=== PATIENT | male | born 1950 | race Caucasian/White ===

== ENCOUNTER 2021-01-18 15:36 | Emergency (ER) | payer MEDICARE, SELFPAY ==
[2021-01-18 17:28] VITALS: BP 139/77; PULSE 73; RESP 14; TEMP 37.1; O2SAT 98; BMI 35.4
[2021-01-18 19:02] LABS: Basophils % 0.4 %; Eosinophils # 0.1 10^3/uL (0.0-0.8); Eosinophils % 0.7 %; Hematocrit 48.1 % (42.0-52.0); Hemoglobin 15.4 g/dL (11.7-16.6); Lymphocytes # 1.6 10^3/uL (0.8-4.8); Lymphocytes % 17.5 %; Mean Corpuscular Hemoglobin 24.8 pg (28.0-34.0); Mean Corpuscular Volume 77.6 fL (80-94); Mean Platelet Volume 9.6 fL (7.4-10.4); Monocytes # 0.9 10^3/uL (0.2-0.9); Monocytes % 9.9 %; Neutrophils # 6.67 10^3/uL (1.8-7.7); Neutrophils % 71.1 %; Nucleated Red Blood Cells % 0 %; Platelet Count 236 10^3/cmm (130-400); Red Cell Distribution Width 15.6 % (12.1-15.1); White Blood Count 9.4 10^3/uL (4.0-10.0)
[2021-01-18 19:27] LABS: Alanine Aminotransferase 20 U/L (0-41); Albumin Level 3.9 g/dL (3.5-5.2); Alkaline Phosphatase 104 IU/L (40-130); Anion Gap 16.8 (5-19); Aspartate Amino Transferase 21 U/L (0-40); Blood Urea Nitrogen 19 mg/dL (8-23); Calcium 9.9 mg/dL (8.5-10.5); Carbon Dioxide 25 mmol/L (22-29); Chloride 99 mmol/L (98-107); Globulin 3.6 g/dL (1.3-4.6); Glomerular Filtration Rate 95.6 mL/min (90-130); Glucose 134 mg/dL (65-115); Lipase 53 U/L (13-60); Osmolality Calculated 288 mOsm/kg (285-295); Potassium 3.8 mmol/L (3.5-5.1); Sodium 137 mmol/L (136-145); Total Bilirubin 0.8 mg/dL (0.15-1.2); Total Protein 7.5 g/dL (6.6-8.7)
[2021-01-18 20:12] LABS: C Reactive Protein 19.3 mg/L (0.0-4.9)
[2021-01-18 21:49] VITALS: BP 165/84; PULSE 73; RESP 16; O2SAT 97
--- NOTE | 2021-01-18 22:03 | ED_ITS ---
HPI - Abdominal Pain General: Chief Complaint: Abdominal Pain Stated Complaint: ABD PAIN, N/V Time Seen by Provider: 01/18/21 22:03 History of Present Illness: HPI narrative: 7-year-old male patient comes in today with abdominal pain. Patient reported 2 days ago he had some significant nausea and vomiting. For the last 12 to 24 hours he has had an increasing pain to his abdomen. Patient reports most of the pain is on the left side. Patient reports some constipation. Patient appears in moderate pain, slightly unwell but not toxic. Patient reports a history of diverticulosis, hypertension, and skin melanoma. Associated Symptoms: Reports constipation, nausea and vomiting Review of Systems General: Reports: 10 or more systems reviewed and unremarkable except in HPI and below GI: Reports: abdominal pain, nausea, vomiting and constipation PFSH ED PFSH: Medical History Abnormal glucose Atrial fibrillation History of nonmelanoma skin cancer HTN (hypertension) Prostate cancer Surgical History H/O knee surgery Family History Other Cancer Diabetes Social History Smoking and tobacco status: never smoked Alcohol intake: current Alcohol intake frequency: holidays/special occasions only Alcohol type: beer Physical Exam Const: COMMON NORMALS: no acute distress and patient oriented x3 GENERAL APPEARANCE: cooperative HENMT: COMMON NORMALS: normocephalic and Normal external nose present HEAD & SCALP: normal to inspection and normocephalic NOSE: Normal external nose present MOUTH: Normal oral and palatal mucosa present THROAT: posterior oropharynx normal Eye: GENERAL EYE: appearance normal, both eyes and all related structures Neck/C-Spine: COMMON NORMALS: full ROM Chest: COMMONS NORMALS: normal inspection of the chest Resp: COMMON NORMALS: normal respiratory effort EFFORT & INSPECTION: Yes able to speak in complete sentences Cardio: COMMON NORMALS: regular rate and regular rhythm RATE: regular rate RHYTHM: regular rhythm GI: AUSCULTATION: Yes normoactive bowel sounds PALPATION: Yes Firmness to palpation present (GI) (Mildly distended) and Yes Tenderness to palpation present (GI) (Generalized) Back/Pelvis: COMMON NORMALS: thoracic and lumbar spine normal to inspection Extremity: COMMON NORMALS: normal to inspection Neuro: COMMON NORMALS: patient oriented x3 and moves all extremities Psych: COMMON NORMALS: mental status grossly normal and cooperative Skin: COMMON NORMALS: no rashes or lesions noted GENERAL SKIN EXAM: no rashes or lesions noted Course Vital Signs: Vital signs: Vital Signs Temperature 98.8 F 01/18/21 17:28 Pulse Rate 73 01/18/21 21:49 Respiratory Rate 16 01/18/21 21:49 Blood Pressure 165/84 01/18/21 21:49 Pulse Oximetry 97 01/18/21 21:49 MDM - Abdominal Pain MDM Narrative: Medical decision making narrative: 74-year-old male comes in with generalized abdominal pain. On exam patient has some mild distention abdomen, decreased bowel sounds, vital signs are normal. Differential diagnosis includes not limited to diverticulitis, gastroenteritis, bowel obstruction, gallbladder disease. Laboratory values were unremarkable. CT scan of the abdomen noticed an ileus with possible developing bowel obstruction. I reviewed the patient with Dr. Egan. He agreed with plan for patient to try outpatient treatment with laxative and a clear liquid diet. I instructed patient to use milk of magnesia 30 ml twice daily until relief of stool. Instructed clear liquid diet until bowel movements are produced. Prescription for Zofran was used to help with nausea. I instructed patient to monitor for fever, uncontrolled pain, blood in vomit or stool. Patient and spouse both reported understanding and agreed to plan. Lab Data: Labs: Lab Results 01/18/21 01/18/21 01/18/21 Range/Units 18:55 18:55 18:55 WBC 9.4 (4.0-10.0) 10^3/ uL RBC 6.20 H (4.1-5.3) 10^6/u L Hgb 15.4 (11.7-16.6) g/dL Hct 48.1 (42.0-52.0) % MCV 77.6 L (80-94) fL MCH 24.8 L (28.0-34.0) pg MCHC 32.0 (30.0-36.0) g/dL RDW 15.6 H (12.1-15.1) % Plt Count 236 (130-400) 10^3/c mm MPV 9.6 (7.4-10.4) fL Neut % (Auto) 71.1 % Lymph % (Auto) 17.5 % [place] % (Auto) 9.9 % Eos % (Auto) 0.7 % Baso % (Auto) 0.4 % Neut # (Auto) 6.67 (1.8-7.7) 10^3/u L Lymph # (Auto) 1.6 (0.8-4.8) 10^3/u L [place] # (Auto) 0.9 (0.2-0.9) 10^3/u L Eos # (Auto) 0.1 (0.0-0.8) 10^3/u L Baso # (Auto) 0.0 (0.0-0.1) 10^3/u L Nucleated RBC % (a uto) 0 % Nucleated RBCs # 0.0 /100WBC Sodium 137 (136-145) mmol/L Potassium 3.8 (3.5-5.1) mmol/L Chloride 99 (98-107) mmol/L Carbon Dioxide 25 (22-29) mmol/L Anion Gap 16.8 (5-19) BUN 19 (8-23) mg/dL Creatinine 0.8 (0.7-1.2) mg/dL GFR Calculation 95.6 (90-130) mL/min Glucose 134 H (65-115) mg/dL Calculated Osmolal ity 288 (285-295) mOsm/k g Calcium 9.9 (8.5-10.5) mg/dL Total Bilirubin 0.8 (0.15-1.2) mg/dL AST 21 (0-40) U/L ALT 20 (0-41) U/L Alkaline Phosphata se 104 (40-130) IU/L C-Reactive Protein 19.3 H (0.0-4.9) mg/L Total Protein 7.5 (6.6-8.7) g/dL Albumin 3.9 (3.5-5.2) g/dL Globulin 3.6 (1.3-4.6) g/dL Lipase 53 (13-60) U/L Discharge Plan Discharge Patient Disposition: Home Clinical Impression: Ileus Abdominal pain Qualifiers: Abdominal location: generalized Qualified Code(s): R10.84 - Generalized abdominal pain Condition: Stable Prescriptions: New ondansetron HCl 4 mg tablet 4 mg PO Q8H PRN (Reason: nausea and vomiting) Qty: 10 RF: 0 Milk of Magnesia 400 mg/5 mL suspension 30 ml PO BID PRN (Reason: constipation) Qty: 240 RF: 0 No Action sotalol 80 mg tablet 80 mg PO DAILY RF: 0 nifedipine 90 mg tablet extended release 90 mg PO DAILY RF: 0 hydrocodone-acetaminophen 10-325 mg tablet 1 tab PO Q8H PRNRF: 0 Discharge Orders: Discharge ED (Routine); Ordered 01/18/21 Ordered By: John Dahl Referrals: Dianna Michael PA [Primary Care Provider] - Discharge Diet: Clear Liquid Discharge Activity: Increase activity as tolerated Patient Instructions: Ileus (ED), Opioid Safety Activity Restrictions/Additional Instructions: Home and rest. Drink plenty of fluids. Use medication as directed. Use milk of magnesia 30 mL twice a day until a good bowel movement. Use Zofran as needed for nausea. Monitor for fever, persistent vomiting, blood in vomit or stool or uncontrolled pain. Return to the emergency department for any of these worsening symptoms or new concerns. Follow-up with primary care as needed. Stand Alone Forms: Work/School Release Coding Level of Care Code ED Life Skills Specialist for Danny Fwd Exam Comprehensive
--- NOTE | 2021-01-18 22:10 | CTR_ITS ---
PROCEDURE INFORMATION: Exam: CT Abdomen And Pelvis With Contrast Exam date and time: 01/18/2021 10:10 PM Age: 70 years old Clinical indication: Constipation and nausea and vomiting; Abdominal pain; Generalized; Prior surgery; Surgery type: Appy; Patient HX: Abd pain with n/v/constipation. History of prostate cancer. ; Additional info: Abd pain, n/v, constipation TECHNIQUE: Imaging protocol: Computed tomography of the abdomen and pelvis with contrast. Radiation optimization: All CT scans at this facility use at least one of these dose optimization techniques: automated exposure control; mA and/or kV adjustment per patient size (includes targeted exams where dose is matched to clinical indication); or iterative reconstruction. Contrast material: OMNI 300; Contrast volume: 95 ml; Contrast route: INTRAVENOUS (IV); COMPARISON: No relevant prior studies available. RADIATION DOSE METRICS: Total DLP (mGy-cm): 1928.3 FINDINGS: Lungs: The lung bases are clear. No effusion Liver: There is a vague lesion of the medial segment of the left lobe of the liver measuring 3.6 x 4 cm. Indeterminate 8 mm right lobe liver lesion. Multiple upper abdominal lymph nodes, largest is periportal and measures 2.1 x 1.7 cm. Gallbladder and bile ducts: There is cholelithiasis without wall thickening or pericholecystic fluid. Pancreas: Normal. No ductal dilation. Spleen: Normal. No splenomegaly. Adrenal glands: Normal. No mass. Kidneys and ureters: There is a subcentimeter low-attenuation lesions/lesions, of the right kidney which are too small to accurately characterize by CT. There is a low-attenuation left renal lesion which is too small to accurately characterize by CT, but likely represents a cyst. Stomach and bowel: There are few loops of gas and fluid-filled small bowel with a balanced amount of gas and fluid in the colon. Appendix: No evidence of appendicitis. Intraperitoneal space: Unremarkable. No free air. No significant fluid collection. Vasculature: Unremarkable. No abdominal aortic aneurysm. Lymph nodes: See Liver finding. Urinary bladder: Unremarkable as visualized. Reproductive: Unremarkable as visualized. Bones/joints: Unremarkable. No acute fracture. Soft tissues: Unremarkable. CT/CT abdomen pelvis w con* [id number] IMPRESSION: 1. Vague 3.6 x 4 cm left lobe liver lesion, concerning for neoplasm/metastatic disease. 2. Ileus versus developing bowel obstruction. 3. Cholelithiasis without cholecystitis. COMMENTS: Consistent with the [employer]'s Incidental Findings Committee white paper (J Am Jessica Radiol 2018): Any incidental renal lesion less than 1 cm or classified as too small to characterize, or any incidental cystic renal lesion characterized as simple-appearing, is likely benign. No follow-up imaging is recommended for these lesions per consensus recommendations based on imaging criteria. Radiation Dose CTDIVOL = (mGy): DLP = 1928.3 (mGy-cm)
[2021-01-18] MEDS: iohexol 300 mg/mL 100 mL Btl IV (22:27)
[2021-01-18 23:39] VITALS: RESP 18
[2021-01-18] MEDS: morphine 4 mg/mL SDV 1 mL IVP (23:39)
[2021-01-18] MEDS: sodium chloride 0.9% 500 ML 999 ML IV (23:39)
[2021-01-18] MEDS: ondansetron 2 mg/ML SDV 2 mL 4 MG IVP (23:39)
[2021-01-18 23:40] VITALS: BP 131/78; PULSE 71; RESP 18; O2SAT 98
[2021-01-18] MEDS: magnesium hydroxide 30 mL UDC PO (23:54)
[2021-01-19 00:28] VITALS: BP 150/86; PULSE 69; RESP 19; O2SAT 95
[2021-01-19 00:29] VITALS: BP 150/86; PULSE 67; RESP 18; O2SAT 94
== END 2021-01-19 00:32 | disposition home or self-care (01) ==
PROVIDERS: Emergency Medicine; Emergency Provider Nurse Practitioner Family; PCP Physician Assistant
DX: K56.7 Ileus, unspecified (principal); I48.91 Unspecified atrial fibrillation; I10 Essential (primary) hypertension
CPT/HCPCS: 36415; 74177; 80053; 83690; 85025; 86140; 96374; 96375; 99284; J2270; J2405; J7040; Q9967

== ENCOUNTER 2021-03-28 07:10 | Outpatient (CLI) | payer MEDICARE, SELFPAY ==
[2021-03-28] VITALS (10 sets, daily range): BP systolic 100–145; BP diastolic 54–77; PULSE 58–91; RESP 12–19; TEMP 36.3; O2SAT 96–99
--- NOTE | 2021-03-28 07:41 | US_ITS ---
WS: [id number] ULTRASOUND-GUIDED LIVER BIOPSY CLINICAL INFORMATION: liver tumor COMPARISON: None. FINDINGS: Conscious sedation was utilized. Timeout was performed. The procedure including risks, benefits, and complications were discussed with the patient who agreed to proceed. Using sterile technique patient was prepped and draped in the usual sterile fashion. Aft er 1% lidocaine utilizing real-time ultrasound guidance 5 18-gauge and 20-gauge cores were obtained o f the hypoechoic liver lesion. Small amount of hematoma about the biopsy tract and biopsy site. No immediate complications. Patient remained in recovery for 90 minutes and was discharged in stable condition. US/US biopsy liver [id number] IMPRESSION: 1. Uncomplicated ultrasound-guided liver biopsy
[2021-03-28] MEDS: sodium chloride 0.9% 1,000 ML 30 ML IV (07:45)
[2021-03-28 07:52] LABS: INR 1.05 (0.8-1.2)
[2021-03-28] MEDS: fentaNYL 50 mcg/mL INJ 2mL 25 MCG IV ×2 (08:55→09:00)
[2021-03-28] MEDS: midazolam 1 mg/mL INJ 2 mL IVP ×2 (08:58→09:00)
--- NOTE | 2021-03-28 09:04 | PC.NURSE ---
Dr. Lamar injected 10 mL 1% lidocaine for ultrasound guided liver biopsy.
--- NOTE | 2021-03-28 10:01 | PC.NURSE ---
Dressing checked periodically with no bleeding noted.
== END 2021-03-28 10:48 | disposition home or self-care (01) ==
PROVIDERS: Radiology Neuroradiology; PCP Physician Assistant; Visit Provider Pathology Anatomic Pathology & Clinical Pathology
DX: D13.4 Benign neoplasm of liver (principal)
CPT/HCPCS: 36415; 47000; 76942; 85610; 88307; 96361; 96374; 96375; J2250; J3010; J7030

== ENCOUNTER 2021-04-17 08:57 | Outpatient (CLI) | payer MEDICARE, SELFPAY ==
[2021-04-17 11:11] LABS: Basophils % 0.6 %; Eosinophils # 0.3 10^3/uL (0.0-0.8); Eosinophils % 4.3 %; Hematocrit 44.6 % (42.0-52.0); Hemoglobin 14.1 g/dL (11.7-16.6); Lymphocytes % 27.7 %; Mean Corpuscular HGB Conc 31.6 g/dL (30.0-36.0); Mean Corpuscular Volume 79.2 fl (80-94); Mean Platelet Volume 9.3 fL (7.4-10.4); Monocytes # 0.7 10^3/uL (0.2-0.9); Monocytes % 9.2 %; Neutrophils % 57.5 %; Nucleated Red Blood Cells % 0 %; Platelet Count 247 10^3/cmm (130-400); Red Blood Count 5.63 10^6/uL (4.1-5.3); Red Cell Distribution Width 14.7 % (12.1-15.1); White Blood Count 7.1 10^3/uL (4.0-10.0)
[2021-04-17 11:27] LABS: Alanine Aminotransferase 27 U/L (0-41); Albumin Level 3.9 g/dL (3.5-5.2); Alkaline Phosphatase 147 IU/L (40-130); Anion Gap 13.4 (5-19); Aspartate Amino Transferase 30 U/L (0-40); Blood Urea Nitrogen 23 mg/dL (8-23); Carbon Dioxide 25 mmol/L (22-29); Chloride 101 mmol/L (98-107); Ferritin 143 ng/mL (30-400); Globulin 3.6 g/dL (1.3-4.6); Glomerular Filtration Rate 133.2 mL/min (90-130); Glucose 130 mg/dL (65-115); Iron 63 ug/dL (59-158); Osmolality Calculated 285 mOsm/kg (285-295); Percent Saturation 21.3 % (20-50); Potassium 4.4 mmol/L (3.5-5.1); Sodium 135 mmol/L (136-145); Total Bilirubin 0.7 mg/dL (0.15-1.2); Total Iron Binding Capacity 295 mcg/dl; Total Protein 7.5 g/dL (6.6-8.7); Unsaturated Iron Binding 232 ug/dL (112-347)
[2021-04-17 11:50] LABS: Hepatitis A Antibody IgM Non-Reactive (Nonreactive); Hepatitis B Core AB, Total Non-Reactive (Nonreactive); Hepatitis B Surface AB 3.5 (11.5-1000); Hepatitis B Surface Antigen Non-Reactive (Nonreactive); Hepatitis C Virus Antibody Non-Reactive (Nonreactive)
--- NOTE | 2021-04-18 06:52 | ONC CON_ITS ---
Dr. Pereira New Patient Note Patient: Dheeraj Beach Unit #: [id number]: 1950 Dicatated By: Rome Pereira M.D.Date of Visit: Apr 17, 2021 Onc MED New Patient/Consult Referring Physician: Liu SAINZ Chief Complaint: Liver lesion. History of Present Illness: This is a 70-year-old man who was seen in regard to the left hepatic lobe lesion which was felt on biopsy to possibly be a dysplastic. On 01/19/2020 when he presented to the emergency room with a 2-day history of nausea/vomiting and abdominal pain. The pain was mainly on the left side. His CT abdomen/pelvis showed evidence of ileus versus developing bowel obstruction. A specific cause for that was not determined. His symptoms resolved with conservative management. However, in the meantime, his CT showed an incidental finding of a 3.6 x 4 cm vague lesion involving the medial segment of the left hepatic lobe. Also noted were multiple upper abdominal lymph nodes, the largest in the periportal area measuring 2.1 x 1.7 cm. His bilirubin and liver enzymes were normal, and his serum lipase also was normal. Further evaluation with ultrasound of the liver on 02/19/2021 showed a 4.3 x 3.3 x 3.6 cm solid hypoechoic lesion in the medial segment left hepatic lobe with increased vascularity, consistent with neoplasm. He then underwent ultrasound directed biopsy of the lesion on 03/28/2021. Pathology, based on overall histologic features and special studies, was felt to be most consistent with focal nodular hyperplasia. However, based on focal immunohistochemical positivity for glypican-3, it was felt to possibly represent a dysplastic nodule. He is seen now for further management. He has been feeling good generally. He says his energy is pretty normal for being 70 years old. His ECOG score is 0. He has good appetite. He previously had intentional weight loss in the range of 100 pounds, but recently he has gained some of that back. He does not have fever or night sweats. He sometimes has cough. He does not complain of shortness of breath or chest pain. He has not had any recurrence of the abdominal pain, and he has no other GI complaints with exception of some constipation, which he manages with milk of magnesia. Bladder function has been pretty good, but he does get up 3 or 4 times at night. He has had episodes of joint pain presumed to be autoimmune, though a specific diagnosis for that has not been determined. His most significant pain is in his knees. He does not complain of headache or dizziness. He has a little bit of numbness in his legs. He has no other focal neurologic symptoms. He had recently developed a significant skin eruption on both legs, thought to be due to poison miladis. It has been gradually resolving. Past Medical History: Mr. Beach's medical history consists of atrial fibrillation, degenerative arthritis, hypertension, inflammatory arthritis, and obesity. He has a history of prostate cancer treated in 2015 with radiation. Past Surgical History: His surgical/procedural history includes appendectomy, bilateral total knee replacement, biopsy of thyroid nodule, excision of basal cell skin cancer, and hernia repair. Medications: HYDROcodone-Acetaminophen 1 Tablet (of 10-325 mg) Oral q 8 hours, NIFEdipine ER 1 Tablet (of 90 mg) Tablet SR 24 HR Oral daily, Sotalol HCl 1 Tablet (of 80 mg) Oral daily Allergies: Sodium Phenylbutyrate Social History: Mr. Beach is and he is retired. 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 He is a non-smoker. He has had just very occasional alcohol use. Family History: Father of testicular cancer at age 28. Mother with stroke at age 84. He has one brother who also has been treated for prostate cancer. He has one sister who is in good health. Review Of Symptoms: Constitutional - He said his energy is pretty normal for being 70 years old. He has normal activity. Appetite is good. He previously had a gradual, intentional weight loss of 100 pounds. He recently has gained. He has not had fever or night sweats. ECOG score is 0, Eyes - No change in vision, ENMT - He has hearing loss. No tinnitus. No sinus congestion, but he has nasal drip. No mouth sores. No sore throat or difficulty swallowing, Hematologic/Lymphatic - He has easy bruising, Respiratory - No shortness of breath. He does have some cough. No pleuritic pain or hemoptysis, Cardiovascular - No angina pain. No palpitations. He has a history of atrial fibrillation, Gastrointestinal - He is no longer having abdominal pain. No nausea or vomiting. No heartburn or acid reflux. He has had some constipation, adequately managed with milk of magnesia. No blood in the stool or black stools, Genitourinary (M) - No dysuria or hematuria. No urinary frequency. He does get up at night 3-4 times. No urgency or incontinence, Musculoskeletal - He has intermittent episodes of joint pain, which is presumed to be autoimmune, Integumentary - He is followed by dermatology for skin cancer, Neurologic - No headache or dizziness. He has a little bit of numbness in his legs. No other focal neurologic symptoms, Psychiatric - No anxiety or depression. No insomnia. Vital Signs: Performed on Apr 17, 2021 10:40: 1, 0, 38.39 (HIGH), 2.58 sq.m, 74 in, 98 %, 65 /min, 18 /min, 122/75 mm(hg), 96.7 F (LOW), and 299 lbs (HIGH). Physical Examination: Constitutional - He appears to be in good general health, Eyes - Sclerae nonicteric. Conjunctivae clear, ENMT - No lesions noted in the oral cavity, Neck - No mass or thyromegaly, Hematologic/Lymphatic - No cervical, clavicular, or axillary adenopathy, Respiratory - Lungs are clear with good air movement bilaterally, Cardiovascular - Heart rhythm is regular. There is no murmur, gallop, or rub noted, Abdomen - Distended. Liver and spleen are not overtly enlarged. There is no abdominal mass or ascites noted and there is no inguinal adenopathy, Back/Spine - No spine or CVA tenderness noted, Extremities - Mild lower extremity edema and erythema. Pedal pulses are palpable bilaterally, Integumentary - No rashes. No suspicious skin lesions noted, Neurologic - No focal neurologic deficits noted. Problem List: 1. 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 2. Hypertension. 3. History of atrial fibrillation. 4. He has a history of prostate cancer, treated with radiation in 2015. 5. Possible inflammatory arthritis. Problems Addressed with this Encounter and Plan: Patient with left hepatic lobe neoplasm felt to be most consistent with focal nodular hyperplasia, though with possibility of dysplastic nodule. This was discovered as an incidental finding in association with an acute GI illness, which subsequently resolved. There was additional CT evidence of upper abdominal lymphadenopathy. The clinical significance of that finding is uncertain. With possible dysplasia noted on the biopsy, there is concerned that this may be premalignant lesion. There is also concerned that the biopsy may have missed malignant disease. The CT findings and pathology results were reviewed with the patient, and we discussed the clinic complications. At this point he will have additional laboratory studies including CBC, comprehensive metabolic profile, viral hepatitis profile, and serum iron studies, mainly to exclude underlying conditions which may predispose to hepatocellular carcinoma. Given the interval from the initial presentation, I will recommend getting a repeat CT abdomen/pelvis. I will then plan to forward the CT images to Dr. Rahman in [place] and confer with him regarding further management. Signed By: Rome Pereira M.D. <<Signature on File>>
== END 2021-04-17 08:58 | disposition home or self-care (01) ==
LOC: ONCMED 09:03
PROVIDERS: PCP Physician Assistant; Visit Provider Internal Medicine Medical Oncology
DX: K76.89 Other specified diseases of liver (principal); I10 Essential (primary) hypertension; I48.91 Unspecified atrial fibrillation; M13.89 Other specified arthritis, multiple sites; Z85.46 Personal history of malignant neoplasm of prostate; Z79.899 Other long term (current) drug therapy
CPT/HCPCS: 36415; 80053; 82728; 83540; 83550; 85025; 86705; 86706; 86709; 86803; 87340; 99204

== ENCOUNTER 2021-05-07 09:06 | Outpatient (CLI) | payer MEDICARE, SELFPAY ==
--- NOTE | 2021-05-07 | CT_ITS ---
WS: [id number] CT ABDOMEN WITH CONTRAST HISTORY: NEOPLASM HEPATIC Contiguous single phase 5 mm axial imaging performed to the abdomen. Oral contrast has been provided. Coronal and sagittal reformats are submitted. All CT scans at [facility] use at least one of these dose optimization techniques: automated exposure control; mA and/or kV adjustment per patient size (includes targeted exams where dose is matched to clinical indication); or iterative reconstruct ion. CONTRAST: Omnipaque 300; 95 mL IV. DLP: 1514.69 mGycm COMPARISON: 01/18/2021, 02/19/2021 Lower thorax: Unremarkable. Liver: Liver is normal size. Mildly lobulated surface of the liver. Again noted is the very vague are a of decreased attenuation in the anterior LEFT lobe of the liver. This area is very difficult to ameya sure but with mild infiltrative appearance. Does not appear to have changed significantly in size sin ce the prior study. Measurement is approximately 3.8 x 3.4 cm. Stable low-attenuation lesion in the i nferior RIGHT hepatic lobe. No bile duct dilatation. Gallbladder: Cholelithiasis. Numerous stones within the gallbladder. No common bile duct dilatation. Normal portal vein. Pancreas: Normal. Spleen: Normal. Adrenals: Normal. Right kidney: Mild cortical thinning. There are several low-attenuation cortical based nodules. These are subcentimeter and too small to characterize but no change. No obstruction Left kidney: Mild cortical thinning. Aorta: Normal. GI tract: Small hiatal hernia. Visualized colon demonstrates mild constipation. Small lymph nodes are identified in the periportal region and also in the central mesenteric root. No increase in size of these lymph nodes. Abdominal wall: No hernia. Visualized osseous structures: Moderate spondylitic changes throughout the lumbar spine. CT/CT abdomen w con* [id number] IMPRESSION: 1. Very vague hypoechoic attenuating lesion in the LEFT lobe of the liver. Sim ilar to the prior study of 01/18/2021. No increase in size. Atypical in appearan ce. Could be an area of fatty geographic infiltration. Not typical for metastat ic lesion. With no increase in size since 01/18/2021 this may be benign. Cannot exclude early slow-growing neoplasm. 2. Cholelithiasis without acute cholecystitis. 3. Periportal and central mesenteric lymph nodes are stable.
[2021-05-07] MEDS: iohexol 300 mg/mL 100 mL Btl IV (11:00)
== END 2021-05-07 09:07 | disposition home or self-care (01) ==
PROVIDERS: PCP Physician Assistant; Visit Provider Internal Medicine Medical Oncology
DX: D37.6 Neoplasm of uncertain behavior of liver, gallbladder and bile ducts (principal); K80.20 Calculus of gallbladder without cholecystitis without obstruction
CPT/HCPCS: 74160; Q9967

== ENCOUNTER 2021-09-14 04:07 | Emergency (ER) | payer MEDICARE, SELFPAY ==
--- NOTE | 2021-09-14 04:14 | ECG_ITS ---
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 Measurements Intervals [place] Rate: 75 P: MD: QRS: -11 QRSD: 104 T: 6 QT: 409 QTc: 458 Interpretive Statements ATRIAL FIBRILLATION NONSPECIFIC T-WAVE ABNORMALITY No previous ECG available for comparison Electronically Signed On 09-14-2021 9:05:23 CDT by Will Frank M.D. [id number]
[2021-09-14 04:19] VITALS: BP 185/106; PULSE 74; RESP 14; TEMP 37; O2SAT 98; BMI 36.2
--- NOTE | 2021-09-14 04:30 | XRR_ITS ---
PROCEDURE INFORMATION: Exam: XR Chest Exam date and time: 09/14/2021 4:35 AM Age: 71 years old Clinical indication: Pain; Chest pressure; Patient HX: Patient C/O chest discomfort. History of afib. ; Additional info: Cp TECHNIQUE: Imaging protocol: XR of the chest. Views: 1 view. COMPARISON: CT abdomen w con* [id number] 05/07/2021 10:47 AM FINDINGS: Lungs: No focal airspace disease. Pleural spaces: Unremarkable. No pleural effusion. No pneumothorax. Heart/Mediastinum: Cardiomediastinal silhouette is within normal limits. Bones/joints: Unremarkable. XR/XR chest 1V portable [id number] IMPRESSION: No acute cardiopulmonary abnormality.
[2021-09-14 05:07] LABS: Basophils % 0.6 %; Eosinophils # 0.3 10^3/uL (0.0-0.8); Eosinophils % 4.7 %; Hematocrit 41.8 % (42.0-52.0); Lymphocytes % 27.4 %; Mean Corpuscular HGB Conc 33.5 g/dL (30.0-36.0); Mean Corpuscular Hemoglobin 25.8 pg (28.0-34.0); Mean Platelet Volume 9.8 fL (7.4-10.4); Monocytes # 0.9 10^3/uL (0.2-0.9); Monocytes % 12.2 %; Neutrophils # 3.95 10^3/uL (1.8-7.7); Neutrophils % 54.8 %; Nucleated Red Blood Cells % 0 %; Platelet Count 191 10^3/cmm (130-400); Red Blood Count 5.43 10^6/uL (4.1-5.3); Red Cell Distribution Width 15.1 % (12.1-15.1); White Blood Count 7.2 10^3/uL (4.0-10.0)
[2021-09-14 05:36] LABS: Troponin(5th) Baseline 25 ng/L (0-15)
[2021-09-14 05:46] LABS: Alanine Aminotransferase 152 U/L (0-41); Albumin Level 3.9 g/dL (3.5-5.2); Alkaline Phosphatase 425 IU/L (40-130); Anion Gap 14.3 (5-19); Aspartate Amino Transferase 121 U/L (0-40); Blood Urea Nitrogen 22 mg/dL (8-23); Calcium 10.1 mg/dL (8.5-10.5); Carbon Dioxide 21 mmol/L (22-29); Chloride 102 mmol/L (98-107); Globulin 3.1 g/dL (1.3-4.6); Glucose 146 mg/dL (65-115); NT Pro B Type Natriuretic Pept 165 pg/mL (0-125); Osmolality Calculated 284 mOsm/kg (285-295); Potassium 3.3 mmol/L (3.5-5.1); Sodium 134 mmol/L (136-145); Total Bilirubin 1.6 mg/dL (0.15-1.2)
[2021-09-14 05:55] VITALS: BP 117/68; PULSE 72; RESP 17; O2SAT 97
--- NOTE | 2021-09-14 06:04 | ED_ITS ---
Documented by User: Sridhar Egan DO 09/14/21 06:29 HPI - Chest Pain General: Chief Complaint: Chest Pain Stated Complaint: Irregular heart beat Time Seen by Provider: 09/14/21 04:31 Source: patient and family History of Present Illness: 71-year-old gentleman with a history of atrial fibrillation. He tells me he has not seen a data collection technician. He also tells me is not had a stress test or cath. He takes sotalol for rate control. He presents with chest discomfort. He states that he rolled over, and could hear his heart beat in my ears this morning. He was experiencing some mild chest discomfort so he woke up his and asked her to bring him to the hospital. Chest discomfort is still there to a mild degree. No significant shortness of breath. No fever, cough, etc. MD complaint: chest pain Pertinent past history: other Onset (ago): hour(s) Timing of current episode: constant Prior episodes: No Onset: during rest Pain location: substernal Pain radiation: none Severity: mild Quality: tightness Relieving factors: nothing Exacerbating factors: nothing Associated symptoms: Reports abdominal pain (Epigastric pain 2 days ago), nausea and palpitations; Deny diaphoresis, dyspnea, fever(s) or vomiting Treatment prior to arrival: none Review of Systems Const: Denies: fever(s) or diaphoresis ENMT: Denies: throat pain Card: Reports: chest pain, palpitations and irregular heart rhythm Resp: Denies: dyspnea GI: Reports: abdominal pain (Epigastric pain 2 days ago) and nausea; Denies: vomiting Musc: Denies: neck pain PFSH ED PFSH: Medical History Abnormal glucose Atrial fibrillation History of nonmelanoma skin cancer HTN (hypertension) Prostate cancer Surgical History H/O knee surgery Family History Other Cancer Diabetes Social History Smoking and tobacco status: never smoked Alcohol intake: current Alcohol intake frequency: holidays/special occasions o nly Alcohol type: beer Physical Exam Const: GENERAL APPEARANCE: cooperative NUTRITIONAL APPEARANCE: obese ORIENTATION/CONSCIOUSNESS: Yes awake, Yes oriented to person, Yes oriented to place and Yes oriented to time HENMT: COMMON NORMALS: normocephalic and atraumatic HEAD & SCALP: normocephalic and atraumatic Eye: COMMON NORMALS: Equal, round and reactive pupils present and EOMs intact bilaterally PUPIL: Yes Equal, round and reactive pupils present Chest: COMMONS NORMALS: normal inspection of the chest CHEST: No tenderness Resp: COMMON NORMALS: normal respiratory effort, No use of accessory muscles and clear to auscultation bilaterally AUSCULTATION: clear to auscultation bilaterally Cardio: COMMON NORMALS: regular rate RATE: regular rate RHYTHM: abnormal rhythm irregularly irregular GI: COMMON NORMALS: Normal to inspection, nondistended, normoactive bowel sounds present and Soft to palpation PALPATION: Yes Soft to palpation and Yes Tenderness to palpation present (GI) (Epigastric) Neuro: NATHAN COMA SCALE: document GCS findings Mayfield coma scale eye opening: Spontaneous [place]field coma scale verbal response: Orientated Nathan coma scale motor response: Obey commands Nathan coma scale total score: 15 SENSORIUM/ORIENTATION: Yes oriented to person, Yes oriented to place and Yes oriented to time Psych: COMMON NORMALS: mental status grossly normal Course Vital Signs: Vital signs: Vital Signs Temperature 98.6 F 09/14/21 04:19 Pulse Rate 72 09/14/21 05:55 Respiratory Rate 17 09/14/21 05:55 Blood Pressure 117/68 09/14/21 05:55 Pulse Oximetry 97 09/14/21 05:55 MDM - Chest Pain Medical Decision Making 71-year-old gentleman with a history of atrial fibrillation that is known. Again, he tells me he has not had a cardiac catheterization or stress test. He takes sotalol for rate control. He has some chest discomfort. EKG shows atrial fibrillation. QRS duration is normal. [place] is borderline. No acute ST changes. Chest x-ray shows perihilar opacity on the right. There are some pulmonary vascular congestion. BNP is only 165. First troponin is 25. Will await a second troponin. He will be checked out to Dr. Griffin at shift change to follow second troponin. Lab Data : 09/14/21 04:51 09/14/21 04:51 Radiology Impressions Chest X-Ray 09/14/21 04:30 IMPRESSION: No acute cardiopulmonary abnormality. Gallbladder Ultrasound 09/14/21 07:00 IMPRESSION: 1. Cholelithiasis with mild mural thickening of the gallbladder wall, which appears chronic. There is no convincing sonographic evidence of acute cholecystitis, though the mold car pusher reported a positive sonographic Spivey sign. If there is ongoing concern, HIDA scan could further evaluate. 2. Mild hepatic steatosis. Laboratory Results WBC 7.2 10^3/uL (4.0-10.0) 09/14/21 04:51 RBC 5.43 10^6/uL (4.1-5.3) H 09/14/21 04:51 Hgb 14.0 g/dL (11.7-16.6) 09/14/21 04:51 Hct 41.8 % (42.0-52.0) L 09/14/21 04:51 MCV 77.0 fl (80-94) L 09/14/21 04:51 MCH 25.8 pg (28.0-34.0) L 09/14/21 04:51 MCHC 33.5 g/dL (30.0-36.0) 09/14/21 04:51 RDW 15.1 % (12.1-15.1) 09/14/21 04:51 Plt Count 191 10^3/cmm (130-400) 09/14/21 04:51 MPV 9.8 fL (7.4-10.4) 09/14/21 04:51 Neut % (Auto) 54.8 % 09/14/21 04:51 Lymph % (Auto) 27.4 % 09/14/21 04:51 [place] % (Auto) 12.2 % 09/14/21 04:51 Eos % (Auto) 4.7 % 09/14/21 04:51 Baso % (Auto) 0.6 % 09/14/21 04:51 Neut # (Auto) 3.95 10^3/uL (1.8-7.7) 09/14/21 04:51 Lymph # (Auto) 2.0 10^3/uL (0.8-4.8) 09/14/21 04:51 [place] # (Auto) 0.9 10^3/uL (0.2-0.9) 09/14/21 04:51 Eos # (Auto) 0.3 10^3/uL (0.0-0.8) 09/14/21 04:51 Baso # (Auto) 0.0 10^3/uL (0.0-0.1) 09/14/21 04:51 Nucleated RBC % (auto) 0 % 09/14/21 04:51 Nucleated RBCs # 0.0 /100WBC 09/14/21 04:51 Sodium 134 mmol/L (136-145) L 09/14/21 04:51 Potassium 3.3 mmol/L (3.5-5.1) L 09/14/21 04:51 Chloride 102 mmol/L (98-107) 09/14/21 04:51 Carbon Dioxide 21 mmol/L (22-29) L 09/14/21 04:51 Anion Gap 14.3 (5-19) 09/14/21 04:51 BUN 22 mg/dL (8-23) 09/14/21 04:51 Creatinine 0.9 mg/dL (0.7-1.2) 09/14/21 04:51 GFR Calculation Not Reportable 09/14/21 04:51 Glucose 146 mg/dL (65-115) H 09/14/21 04:51 Calculated Osmolality 284 mOsm/kg (285-295) L 09/14/21 04:51 Calcium 10.1 mg/dL (8.5-10.5) 09/14/21 04:51 Total Bilirubin 1.6 mg/dL (0.15-1.2) H 09/14/21 04:51 AST 121 U/L (0-40) H 09/14/21 04:51 ALT 152 U/L (0-41) H 09/14/21 04:51 Alkaline Phosphatase 425 IU/L (40-130) H 09/14/21 04:51 Troponin T Baseline 25 ng/L (0-15) H 09/14/21 04:51 Troponin T 120 Minute 22.97 ng/L (0-15) H 09/14/21 06:57 Delta Troponin T -2.03 ABS# (0-10) L 09/14/21 06:57 NT-Pro-B Natriuret Pep 165 pg/mL (0-125) H 09/14/21 04:51 Total Protein 7.0 g/dL (6.6-8.7) 09/14/21 04:51 Albumin 3.9 g/dL (3.5-5.2) 09/14/21 04:51 Globulin 3.1 g/dL (1.3-4.6) 09/14/21 04:51 Discharge Plan Discharge Patient Disposition: Home Clinical Impression: Atypical chest pain, Atrial fibrillation, controlled, Cholelithiasis Condition: Stable Prescriptions: No Action sotalol 80 mg tablet 80 mg PO DAILY 0RF nifedipine 90 mg tablet extended release 90 mg PO DAILY 0RF hydrocodone-acetaminophen 10-325 mg tablet 1 tab PO Q8H PRN (Reason: Pain) 0RF magnesium hydroxide [Milk of Magnesia] 400 mg/5 mL suspension 30 ml PO BID PRN (Reason: constipation) Qty: 240 0RF Discharge Orders: Discharge ED (Routine); Ordered 09/14/21 Ordered By: Srinivasan Griffin Referrals: Dianna Michael PA [Primary Care Provider] - Discharge Diet: Low Fat Discharge Activity: Resume usual activity Patient Instructions: Opioid Safety Activity Restrictions/Additional Instructions: assistant clinical nurse manager will make arrangements for you to have a Lexiscan sestamibi stress test as an outpatient. Also make arrangements for you to follow-up with general surgery to further evaluate your abnormal liver enzymes and gallstones. Sign Out Sign Out Data: Patient Sign Out occurred on 09/14/21 at 06:43. Patient's care was discussed, and care was transferred from to Srinivasan Griffin DO. Coding Level of Care Code ED Destination Specialist for Chg Fwd Exam Comprehensive Documented by User: Srinivasan Griffin DO 09/14/21 09:17 HPI - Chest Pain General: Chief Complaint: Chest Pain Stated Complaint: Irregular heart beat Time Seen by Provider: 09/14/21 04:31 PFSH ED PFSH: Medical History Abnormal glucose Atrial fibrillation History of nonmelanoma skin cancer HTN (hypertension) Prostate cancer Surgical History H/O knee surgery Family History Other Cancer Diabetes Social History Smoking and tobacco status: never smoked Alcohol intake: current Alcohol intake frequency: holidays/special occasions only Alcohol type: beer Physical Exam Neuro: NATHAN COMA SCALE: document GCS findings Mayfield coma scale total score: 15 Course Vital Signs: Vital signs: Vital Signs Temperature 98.6 F 09/14/21 04:19 Pulse Rate 72 09/14/21 05:55 Respiratory Rate 17 09/14/21 05:55 Blood Pressure 117/68 09/14/21 05:55 Pulse Oximetry 97 09/14/21 05:55 MDM - Chest Pain Medical Decision Making 71-year-old gentleman with a history of atrial fibrillation that is known. Again, he tells me he has not had a cardiac catheterization or stress test. He takes sotalol for rate control. He has some chest discomfort. EKG shows atrial fibrillation. QRS duration is normal. Alton is borderline. No acute ST changes. Chest x-ray shows perihilar opacity on the right. There are some pulmonary vascular congestion. BNP is only 165. First troponin is 25. Will await a second troponin. He will be checked out to Dr. Griffin at shift change to follow second troponin. Second troponin is negative liver enzymes are elevated. Reviewing the chart he has had extensive work-up for liver mass. Comment in Dr. Pereira's note in the past that work-up his liver enzymes and bilirubin have been normal was from March of last year. His liver enzymes are marked are elevated today as well as his bilirubin and talking to him it does sound like he gets some gallbladder symptoms at times he has none at the moment. I cannot reproduce any right upper quadrant pain. I do believe he probably has some gallbladder disease precipitated by his cholelithiasis but it is not acute at the moment and does not require hospitalization or immediate surgery. Does require close follow-up however. Aspirin due no fat diet avoid meat products and tomato based products. We will set him up for cardiac stress test as well as follow-up with general surgery to evaluate his cholelithiasis. Asked patient to return if he has any worsening problems. 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 That seems to have precipitated his chest discomfort his A. fib is well controlled his troponin is negative EKG shows A. fib but nothing acute we will discharge him home set him up for outpatient cardiac stress test Medical Records I reviewed the patient's medical records. Lab Data I reviewed the patient's lab results. : 09/14/21 04:51 09/14/21 04:51 Radiology Impressions Chest X-Ray 09/14/21 04:30 IMPRESSION: No acute cardiopulmonary abnormality. Gallbladder Ultrasound 09/14/21 07:00
--- NOTE | 2021-09-14 06:30 | ECG_ITS ---
[facility] Test Date: 2021-09-14 Pat Name: Dheeraj Beach Department: Room: Gender: Male Contract Negotiation Specialist: : 1950 Requested By: Sridhar Rowland Order Number: [id number] Tommy MD: Will Frank M.D. Measurements Intervals [place] Rate: 73 P: IA: QRS: -13 QRSD: 98 T: -28 QT: 406 QTc: 448 Interpretive Statements ATRIAL FIBRILLATION NONSPECIFIC ST & T-WAVE ABNORMALITY Compared to ECG 09/14/2021 04:26:03 No significant changes Electronically Signed On 09-14-2021 9:05:59 CDT by Will Frank M.D. [id number]
--- NOTE | 2021-09-14 07:00 | USR_ITS ---
PROCEDURE INFORMATION: Exam: US Abdomen, Limited; Right Upper Quadrant Exam date and time: 09/14/2021 7:59 AM Age: 71 years old Clinical indication: Abdominal pain; Prior surgery; Surgery date: 6+ months; Surgery type: Appendix; Additional info: Elevated liver enzymes TECHNIQUE: Imaging protocol: US abdomen. Real time ultrasound with image documentation. Limited exam focused on the right upper quadrant. COMPARISON: CT abdomen w con* [id number] 05/07/2021 10:47 AM FINDINGS: Liver: Mildly increased echogenicity of the liver. No masses are seen. The liver measures up to 17.6 cm. Gallbladder: The gallbladder is not distended but demonstrates mild mural thickening as well as gallstones in the lumen. The appearance is not substantially changed from ultrasound dated 02/19/2021. Positive sonographic Spivey's sign per the body recall instructor. Common bile duct: The common bile duct measures up to 6 mm. No biliary dilation. Pancreas: Limited visualization of the pancreas. Visualized portions appear unremarkable. Right kidney: The right kidney measures up to 11.2 cm in length. No hydronephrosis. No masses. Aorta: The aorta appears within normal limits. Portal venous: Patent main portal vein with antegrade flow. US/US gall bladder [id number] IMPRESSION: 1. Cholelithiasis with mild mural thickening of the gallbladder wall, which appears chronic. There is no convincing sonographic evidence of acute cholecystitis, though the body recall instructor reported a positive sonographic Spivey sign. If there is ongoing concern, HIDA scan could further evaluate. 2. Mild hepatic steatosis.
[2021-09-14 07:21] LABS: Troponin 5 2HR 22.97 ng/L (0-15)
[2021-09-14 07:38] LABS: Troponin 5 2HR Delta -2.03 ABS# (0-10)
[2021-09-14 09:19] LABS: Lipase 173 U/L (13-60)
[2021-09-14 14:34] VITALS: BP 137/77; PULSE 80; RESP 14
--- NOTE | 2021-09-16 12:54 | DCPLANNER ---
Addendum entered by Isa Pleitez 10/09/21 15:35: Patient did attend appointment Addendum entered by Isa Pleitez 09/19/21 07:23: Patient has an appointment scheduled for Monday, September 20, 2021 at 12:[address] Moncada at General Surgery. Clinic will call patient with appointment information. Original Note: field human resources manager had message to schedule a follow up appointment for patient with general surgery. field human resources manager sent patients information to the front staff at [facility] General Surgery thru [employer] task/message system. Patients information will be printed and reviewed. Clinic will call patient with appointment information.
--- NOTE | 2021-09-17 12:03 | DCPLANNER ---
surgical services manager had message to schedule an out patient stress test for patient. surgical services manager spoke with patient to confirm that he wanted the stress test and to confirm who he seen for primary care. Patient stated that [place] Dian[place] [facility], and that he does not want to have the stress test scheduled at this time. surgical services manager offered to make a follow up appointment for patient with his primary care, patient stated that he would schedule a follow up with his primary care.
== END 2021-09-14 09:38 | disposition home or self-care (01) ==
PROVIDERS: Emergency Medicine; Emergency Provider Family Medicine; PCP Physician Assistant
DX: R07.89 Other chest pain (principal); I48.91 Unspecified atrial fibrillation; K80.20 Calculus of gallbladder without cholecystitis without obstruction; I10 Essential (primary) hypertension; Z85.46 Personal history of malignant neoplasm of prostate
CPT/HCPCS: 71045; 76705; 80053; 83690; 83880; 84484; 85025; 86140; 93005; 99283

== ENCOUNTER → 2021-09-20 08:59 | Day surgery (SDC) | payer MEDICARE, SELFPAY | PROVIDERS: PCP Physician Assistant; Referring Provider Family Medicine; Visit Provider Surgery | DX: K80.20 Calculus of gallbladder without cholecystitis without obstruction (principal); R16.0 Hepatomegaly, not elsewhere classified ==

== ENCOUNTER 2021-09-30 08:48 | Day surgery (SDC) | payer MEDICARE, SELFPAY ==
[2021-09-27 14:13] VITALS: BMI 36.6
[2021-09-30] VITALS (12 sets, daily range): BP systolic 129–173; BP diastolic 63–100; PULSE 52–76; RESP 12–23; TEMP -98–36.8; O2SAT 93–100
--- NOTE | 2021-09-30 08:52 | P.HP_ITS ---
Same Day Surgery H&P Indication for Procedure/HPI DATE OF PROCEDURE: September 30, 2021 CHIEF COMPLAINT/INDICATIONFOR SURGICAL PROCEDURE: lap fernandez PREOP DIAGNOSIS: cholelithiasis PLANNED PROCEDURE: Operation Date: 09/30/21 10:10 Proposed Procedures p Laparoscopic Cholecystectomy 15064/K80.20 cholelithiasis(Not Applicable) - Earle Moncada MD Medications/Allergies* Home Medications Medication Instructions Recorded Confirmed Type hydrocodone 10 mg-acetaminophen 1 tab PO Q8H PRN 06/28/20 09/27/21 History 325 mg tablet nifedipine 90 mg tablet,extended 90 mg PO DAILY 06/28/20 09/27/21 History release sotalol 80 mg tablet 80 mg PO DAILY tab 06/28/20 09/27/21 History Allergies/Adverse Reactions Allergy/AdvReac Type Severity Reaction Status Date / Time sodium phenylbutyrate Allergy unconsciursness, Uncoded 09/27/21 14:09 crazy Pertinent History/Comorbid Conditions* Medical History (Updated 09/22/21 @ 00:01 by ) Abnormal glucose Atrial fibrillation History of nonmelanoma skin cancer HTN (hypertension) Prostate cancer Surgical History (Updated 09/20/21 @ 09:18 by Earle Moncada MD) H/O knee surgery History of appendectomy History of colonoscopy 5 yrs ago History of hernia repair Family History (Updated 06/28/20 @ 09:20 by Lucie Peacock LPN) Diabetes Cancer Social History Smoking and tobacco status: never smoked Alcohol intake: current Alcohol intake frequency: holidays/special occasions only Alcohol type: beer Pertinent Exam Findings alert, oriented x 3 and regular rate & rhythm Recommendations Surgery/Procedure today Coding Level of Care Code Acute Senior Ruby Developer for Chg Endy
[2021-09-30] MEDS: sodium chloride 0.9% 1,000 ML 30 ML IV (09:26)
--- NOTE | 2021-09-30 10:26 | ANES.PREANE2 ---
Pre-Anesthetic Assessment Height/Weight: Height 1.91 m Weight 132.903 kg Temp Pulse Resp BP Pulse Ox 97.7 F 66 18 155/93 99 09/30/21 09:05 09/30/21 09:05 09/30/21 09:05 09/30/21 09:27 09/30/21 09:05 Preop Diagnosis: Cholelithiasis Operation Date: 09/30/21 10:10 Proposed Procedures p Laparoscopic Cholecystectomy 46011/K80.20 cholelithiasis(Not Applicable) - Earle Moncada MD Familial anesthetic complications: None Was Beta Tony taken within 24 hours: Yes Was Clonidine taken within 24 hours: N/A Last intake: Intake Last Liquid Date 09/29/21 Last Liquid Time 20:00 Last Solid Date 09/29/21 Last Solid Time 20:00 Social No alcohol and No tobacco Exam alert, oriented x 3, clear to auscultation bilaterally and regular rate & rhythm Airway Submandibular: within normal limits Cervical ROM: within normal limits Mallampati: Class II Dentition: full CV/HEM Hypertension Metabolic Morbid Obesity Anesthetic Plan ASA status: 3 Anesthesia: General Medications/Allergies Home Medications Medication Instructions Recorded Confirmed Last Taken Type nifedipine 90 mg tablet,extended 90 mg PO DAILY 06/28/20 09/30/21 09/29/21 History release sotalol 80 mg tablet 80 mg PO DAILY tab 06/28/20 09/30/21 09/30/21 07:00 History magnesium hydroxide 400 mg/5 mL 30 ml PO BID PRN #240 ml 01/18/21 09/30/21 09/24/21 Rx oral suspension (Milk of Magnesia) docusate sodium 100 mg capsule 100 mg PO BID #30 cap 09/30/21 Unknown Rx (Colace) hydrocodone 5 mg-acetaminophen 325 1 tab PO Q6H PRN #20 tab 09/30/21 Unknown Rx mg tablet ondansetron HCl 4 mg tablet 4 mg PO Q8H 5 Days #15 tab 09/30/21 Unknown Rx Allergies Allergy/AdvReac Type Severity Reaction Status Date / Time sodium phenylbutyrate Allergy unconsciursness, Uncoded 09/30/21 08:59 crazy Current Medications Generic Name Dose Route Start Last Admin Trade Name Freq PRN Reason Stop Dose Admin Sodium Chloride 1,000 mls @ 30 mls/hr 09/30/21 09:00 09/30/21 09:26 Sodium Chloride 0.9% IV 10/01/21 08:59 30 mls/hr .Q24H ADWOA Administration PFSH Anesthesia Medical History (Updated 09/22/21 @ 00:01 by ) Abnormal glucose Atrial fibrillation History of nonmelanoma skin cancer HTN (hypertension) Prostate cancer Surgical History (Updated 09/30/21 @ 08:59 by Earle Moncada MD) H/O knee surgery History of appendectomy History of colonoscopy 5 yrs ago History of hernia repair Status post laparoscopic cholecystectomy (09/30/21) Family History Other Cancer Diabetes Social History Smoking and tobacco status: never smoked Alcohol intake: current Alcohol intake frequency: holidays/special occasions only Alcohol type: beer Data Anesthesia Cardiac Studies: No Data to Display
--- NOTE | 2021-09-30 11:34 | PM.OP ---
Operative Report Date of procedure: September 30, 2021 Pre-op diagnosis: Cholelithiasis Post-op diagnosis: Cholelithiasis Hydrops gallbladder Macronodular liver Procedure done: 1. Laparoscopic cholecystectomy 2. Laparoscopic liver biopsy Specimens removed/disposition: 1. Gallbladder 2. Wedge biopsy of liver Surgeon: Earle Moncada Anesthesia: General Condition: stable Disposition: PACU Procedure: The patient was taken to the operating room and was intubated under general anesthesia. After the antibiotic had been administered, the abdomen was prepped and draped in a sterile manner. Using a #15 blade, a 1 centimeter supraumbilical incision was made and using an open Shirley technique the peritoneal cavity was entered. A 10 millimeter port was placed and 15 millimeters of pneumoperitoneum was created. A 10 millimeter, 30 degrees scope was then introduced. Three 5 millimeter ports were placed in the epigastric, midclavicular and the anterior axillary line two fingerbreadths below the costal margin on the right side under the direct visualization. Ratcheted forceps were introduced into the lateral most port and was used to retract the fundus of the gallbladder cephalad and using forceps the infundibulum of the gallbladder was retracted laterally. There was a tear in the body of the gallbladder with lateral retraction with spillage of bile and stones which was irrigated and the stones were retrieved. Using L-hook cautery the peritoneum overlying the Calot's triangle was opened medially and laterally until the cystic duct and the cystic artery were skeletonized. Dissection was carried along the body of the gallbladder and after ensuring critical view of safety, 4 clips applied on the cystic duct and 3 clips applied on the cystic artery and cut leaving, 3 clips on the remaining portion of the duct and 2 clips on the remaining portion of the artery. The rest of the gallbladder was dissected off the liver using L-hook cautery. There was no bleeding or bile leaking noted from the gallbladder fossa and the clips appeared to be in place. The liver appeared nodular and therefore a wedge biopsy was obtained from the right lobe of the liver. An EndoCatch bag was introduced to remove the gallbladder, spilled stones and the wedge liver biopsy. All the ports were removed under direct visualization and there was no bleeding noted from the port sites. The fascia of the 10 mm port site was closed using [id number] Vicryl sutures and the subcutaneous tissue was approximated using 3-0 Vicryl sutures. The skin at all four ports were closed using 4-0 Monocryl and Dermabond. A total of 10 millimeters of 0.5% Marcaine was infiltrated around the port sites. The patient was extubated and transferred to recovery room in stable condition.
--- NOTE | 2021-09-30 11:49 | SUR.PHASEI ---
1139 PT TO PACU SLEEPY WITH ORAL AIRWAY IN PLACE, GOOD RESP EFFORT NOTED VSS IV PATENT TO LT AC #20 WITH NS 700ML UP AT KVO RATE PER GRAVITY, ABDOMEN IS LARGE SOFT WITH 4 SITES WITH DERMABOND, BILAT SCDS ON. PT ID BRACELET TO LT WRIST, PT ID WITH 2 IDENTIFIERS [id number] PT AWAKES ALERT VERBALLY DENIES PAIN AND NAUSEA, VSS ORAL AIRWAY OUT PT ON RA TRIAL.
[2021-09-30] MEDS: fentaNYL 50 mcg/mL INJ 2mL IVP ×2 (11:55→12:05)
--- NOTE | 2021-09-30 14:09 | ANE.PACU2 ---
Inpatient post-anesthesia follow up: Airway intact: Yes Vital signs: Temperature -98.0 F Pulse Rate 59 Respiratory Rate 18 Blood Pressure 135/70 Pulse Oximetry 99 Oxygen Delivery Me thod Room Air Oxygen Flow Rate 3 Fraction of Inspir ed Oxygen Hydration adequate: Yes Nausea and vomiting: No Pain level: 2 Mental status: Baseline
== END 2021-09-30 13:42 | disposition home or self-care (01) ==
PROVIDERS: PCP Physician Assistant; Visit Provider Surgery
PROC: 0FT44ZZ Resection of Gallbladder, Percutaneous Endoscopic Approach (ICD-10-PCS; CPT 47562; principal; 2021-09-30 10:10)
PROC: 0FB04ZX Excision of Liver, Percutaneous Endoscopic Approach, Diagnostic (ICD-10-PCS; CPT 47379; 2021-09-30 10:10)
DX: K80.10 Calculus of gallbladder with chronic cholecystitis without obstruction (principal); K74.60 Unspecified cirrhosis of liver; I10 Essential (primary) hypertension; E66.01 Morbid (severe) obesity due to excess calories; Z68.36 Body mass index [BMI] 36.0-36.9, adult; I48.91 Unspecified atrial fibrillation; Z85.46 Personal history of malignant neoplasm of prostate; Z85.828 Personal history of other malignant neoplasm of skin
CPT/HCPCS: 47379; 47562; 88304; 88307; 88313; 88342; J0330; J0690; J1100; J2405; J2704; J3010; J3490; J7030

== ENCOUNTER → 2021-10-15 08:48 | Outpatient (BNVA) | payer MEDICARE, SELFPAY | PROVIDERS: PCP Physician Assistant; Visit Provider Surgery | DX: Z98.890 Other specified postprocedural states (principal); Z90.49 Acquired absence of other specified parts of digestive tract; K74.60 Unspecified cirrhosis of liver | CPT/HCPCS: 99213 ==

== ENCOUNTER 2022-07-17 14:31 | Outpatient (CLI) | payer MEDICARE, SELFPAY ==
--- NOTE | 2022-07-17 | US_ITS ---
WS: [id number] RIGHT UPPER QUADRANT ULTRASOUND HISTORY: LIVER TUMOR COMPARISON: Prior CT 05/07/2021 and 01/18/2021, gallbladder ultrasound 09/14/2021 Liver: 20.5 cm in length. Liver is enlarged and very heterogeneous. There is new moderate central rachel e duct dilatation. Dilated ducts were not present on prior studies. Heterogeneous, hyperechoic mildly infiltrating lesion in the RIGHT lobe of the liver is very nonspecific. This area is approximately 4 .5 x 4.5 x 3.3 cm. No displacement of the vessels. Towards the ed hepatis there is increased echog enic thickening which may be associated with the bile ducts. There are also a few lymph nodes in the ed hepatis. Portal Vein: Abnormal flow. Reversal of flow in the portal vein. Gallbladder: Prior cholecystectomy. CBD: 1.2 cm Pancreas: There is fullness in the region of the pancreatic head along with several lymph nodes. Panc reatic duct is not dilated. Right kidney: 10.5 cm in length. Normal size and echogenicity. No hydronephrosis or mass. Aorta and IVC: Unremarkable abdominal aorta and IVC. No ascites. US/US liver [id number] IMPRESSION: 1. Interval development of moderate central bile duct and common bile duct dil atation. Evaluation of the liver, pancreas and bile ducts needs to be further e valuated. Neoplasm such as cholangiocarcinoma, distal bile duct or pancreatic o rigin needs to be considered. Recommend follow-up CT abdomen and pelvis with IV and oral contrast. CT liver should be obtained during arterial and portal veno us phases. 2. Enlarged lymph nodes near the ed hepatis. 3. Infiltrating hyperechoic mass in the RIGHT lobe of the liver is very nonspe cific. May be focal fatty changes versus infiltrate mass such as cholangiocarci noma. 4. Prior cholecystectomy.
== END 2022-07-17 14:32 | disposition home or self-care (01) ==
PROVIDERS: PCP Physician Assistant; Visit Provider Physician Assistant
DX: D49.0 Neoplasm of unspecified behavior of digestive system (principal)
CPT/HCPCS: 76705

== ENCOUNTER 2022-07-31 03:55 | Emergency (ER) | payer MEDICARE, SELFPAY ==
[2022-07-31 04:03] VITALS: BP 72/49; PULSE 107; RESP 16; TEMP 36.3; O2SAT 92
--- NOTE | 2022-07-31 04:03 | XRR_ITS ---
PROCEDURE INFORMATION: Exam: XR Chest Exam date and time: 07/31/2022 4:12 AM Age: 72 years old Clinical indication: Other: General weakness. Patient HX: General weakness with hypotension on monitor. Recently diagnosed with hepatic cancer at outside facility. PT is visibly jaundiced. History of prostate cancer. TECHNIQUE: Imaging protocol: Radiologic exam of the chest. Views: 1 view. COMPARISON: CR XR chest 1V portable [id number] 09/14/2021 4:35 AM FINDINGS: Lungs: Mild lower lung atelectasis or scarring. No consolidation. Pleural spaces: Unremarkable. No pleural effusion. No pneumothorax. Heart/Mediastinum: The heart is mildly enlarged. Bones/joints: Unremarkable. XR/XR chest 1V portable [id number] IMPRESSION: No acute findings.
--- NOTE | 2022-07-31 04:03 | ECG_ITS ---
[facility] Test Date: 2022-07-31 Pat Name: Dheeraj Beach Department: Room: Gender: Male Core Sucker: : 1950 Requested By: Sven Gregg Order Number: [id number] Sanders MD: Liseth Zhao M.D. Measurements Intervals [place] Rate: 105 P: 0 ID: 0 QRS: -8 QRSD: 126 T: 17 QT: 364 QTc: 481 Interpretive Statements ATRIAL FIBRILLATION WITH RAPID VENTRICULAR RESPONSE PROBABLE LATERAL MYOCARDIAL INFARCTION , PROBABLY OLD [35 ms Q WAVE IN I/aVL/V5/V6] Compared to ECG 09/14/2021 07:11:11 Myocardial infarct finding now present T-wave abnormality no longer present Electronically Signed On 08-01-2022 8:10:26 SNOW RANGER by Liseth Zhao M.D. [email or web address] general [email or web address] Surgical/store/[id number] f
[2022-07-31] MEDS: sodium chloride 0.9% 1,000 ML 999 ML IV ×2 (04:12→05:08)
--- NOTE | 2022-07-31 04:17 | W.ED.WEAKNES ---
Documented by User: Sven Gregg MD 07/31/22 04:59 HPI - Weakness General: Chief complaint: Weakness Stated complaint: WEAKNESS Time Seen by Provider: 07/31/22 03:56 Source: patient and EMS Mode of arrival: EMS Limitations: no limitations History of Present Illness: 72-year-old male who was recently diagnosed with liver cancer he was admitted at [facility] on July 18 for mass on his liver also biliary obstruction he had a drain placed he was released last Thursday states that he had went in yesterday for clinic visit due to rising bilirubin levels they believe the drain was kinked they removed in the office and under procedural sedation tried replacing was unable to replace it. They discharged him in tomorrow he supposed to have a new drain placed under general anesthesia but states he has had increasing weakness and has been much worse since being home. He states that tonight he was unable to get up and EMS was called he was hypotensive he denies any pain anywhere he is clearly jaundiced he denies any fevers. Associated symptoms: Denies chest pain, dysuria, easy bruising, headache(s), nausea or vomiting Review of Systems Const: Reports: fatigue and malaise Eyes: Denies: blurry vision or eye discomfort ENMT: Denies: throat pain or dental pain Card: Denies: chest pain Resp: Denies: dyspnea GI: Denies: abdominal pain, nausea, vomiting or diarrhea : Denies: dysuria Musc: Denies: neck pain or back pain Skin/Breast: Denies: rash Neuro: Denies: headache(s) Psych: Denies: depression Xu/Lymph: Denies: easy bruising All/Imm: Denies: urticaria PFSH ED PFSH: Medical History Abnormal glucose Atrial fibrillation Cirrhosis History of nonmelanoma skin cancer HTN (hypertension) Prostate cancer Surgical History H/O knee surgery History of appendectomy History of colonoscopy 5 yrs ago History of hernia repair Status post laparoscopic cholecystectomy (09/30/21) Family History Other Cancer Diabetes Social History Smoking and tobacco status: never smoked Alcohol intake: current Alcohol intake frequency: holidays/special occasions only Alcohol type: beer Physical Exam Const: COMMON NORMALS: patient oriented x3 GENERAL APPEARANCE: ill appearing HENMT: COMMON NORMALS: normocephalic and atraumatic HEAD & SCALP: normocephalic and atraumatic Eye: COMMON NORMALS: Equal, round and reactive pupils present and EOMs intact bilaterally PUPIL: Yes Equal, round and reactive pupils present Neck/C-Spine: COMMON NORMALS: full ROM and supple Chest: COMMONS NORMALS: normal inspection of the chest and normal palpation of entire chest wall Resp: COMMON NORMALS: normal respiratory effort, No retractions, No use of accessory muscles and clear to auscultation bilaterally AUSCULTATION: clear to auscultation bilaterally Cardio: COMMON NORMALS: regular rate, regular rhythm and No murmurs present (Cardio) RATE: regular rate RHYTHM: regular rhythm GI: COMMON NORMALS: Normal to inspection, nondistended, normoactive bowel sounds present, Soft to palpation, non-tender and no masses PALPATION: Yes Soft to palpation Extremity: COMMON NORMALS: normal to inspection and full ROM Neuro: COMMON NORMALS: patient oriented x3, moves all extremities and no focal motor deficits Psych: COMMON NORMALS: mental status grossly normal, Normal thought process present and cooperative THOUGHT PROCESS: Normal thought process present Skin: COMMON NORMALS: no wounds NARRATIVE SKIN EXAM: jaundiced Course Vital Signs: Vital signs: Vital Signs Temperature 97.4 F L 07/31/22 04:03 Pulse Rate 94 07/31/22 07:37 Respiratory Rate 16 07/31/22 06:31 Blood Pressure 102/53 07/31/22 07:37 Pulse Oximetry 100 07/31/22 07:37 Oxygen Delivery Me thod 07/31/22 07:37 Oxygen Flow Rate 2 07/31/22 07:37 MDM - Weakness Lab Data 07/31/22 04:21 07/31/22 04:21 Radiology Impressions Chest X-Ray 07/31/22 04:03 IMPRESSION: No acute findings. Abdomen/Pelvis CT 07/31/22 04:32 IMPRESSION: 1. Findings of stage IV cancer with pancreatic mass and adjacent lymphadenopathy, liver metastases, and likely other sites of metastatic disease. 2. Hepatosplenomegaly with numerous varices. 3. Moderate right-sided colitis. 4. Diffuse 3rd spacing of fluid. Mild ascites. 5. Fecal filled colon. 6. Numerous chronic findings above. Concerning findings overall. Advise appropriate follow-up as indicated. COMMENTS: Consistent with the [place]'s Incidental Findings Committee white paper (J Am Jessica Radiol 2018): Any incidental renal lesion less than 1 cm or classified as too small to characterize, or any incidental cystic renal lesion characterized as simple-appearing, is likely benign. No follow-up imaging is recommended for these lesions per consensus recommendations based on imaging criteria. Laboratory Results WBC 12.9 10^3/uL (4.0-10.0) H 07/31/22 04:21 RBC 4.40 10^6/uL (4.1-5.3) 07/31/22 04:21 Hgb 12.0 g/dL (11.7-16.6) 07/31/22 04:21 Hct 36.8 % (42.0-52.0) L 07/31/22 04:21 MCV 83.6 fl (80-94) 07/31/22 04:21 MCH 27.3 pg (28.0-34.0) L 07/31/22 04:21 MCHC 32.6 g/dL (30.0-36.0) 07/31/22 04:21 RDW 20.9 % (12.1-15.1) H 07/31/22 04:21 Plt Count 173 10^3/cmm (130-400) 07/31/22 04:21 MPV 10.0 fL (7.4-10.4) 07/31/22 04:21 Neut % (Auto) 87.1 % 07/31/22 04:21 Lymph % (Auto) 5.4 % 07/31/22 04:21 [place] % (Auto) 6.3 % 07/31/22 04:21 Eos % (Auto) 0.0 % 07/31/22 04:21 Baso % (Auto) 0.2 % 07/31/22 04:21 Neut # (Auto) 11.24 10^3/uL (1.8-7.7) H 07/31/22 04:21 Lymph # (Auto) 0.7 10^3/uL (0.8-4.8) L 07/31/22 04:21 [place] # (Auto) 0.8 10^3/uL (0.2-0.9) 07/31/22 04:21 Eos # (Auto) 0.0 10^3/uL (0.0-0.8) 07/31/22 04:21 Baso # (Auto) 0.0 10^3/uL (0.0-0.1) 07/31/22 04:21 Nucleated RBC % (auto) 0 % 07/31/22 04:21 Nucleated RBCs # 0.0 /100WBC 07/31/22 04:21 PT 21.80 SECONDS (12.1-14.9) H 07/31/22 04:21 INR 1.83 (0.8-1.2) H 07/31/22 04:21 Specimen Type Arterial 07/31/22 05:20 Sample Site Radial, left 07/31/22 05:20 ABG pH 7.38 (7.35-7.45) 07/31/22 05:20 ABG pCO2 30.7 mmHg (35-45) L 07/31/22 05:20 ABG pO2 68.9 mmHg (80.0-100.0) L 07/31/22 05:20 ABG HCO3 18.3 mmol/L (22-26) L 07/31/22 05:20 ABG Base Excess -5.9 mmol/L (-2.0-2.0) L 07/31/22 05:20 Mariano Test Pos 07/31/22 05:20 Hematocrit 33.9 % (42-52) L 07/31/22 05:20 O2 Delivery Device None 07/31/22 05:20 FiO2 21.0 % 07/31/22 05:20 Soil Engineer ID Bryan 07/31/22 05:20 Sodium 132 mmol/L (136-145) L 07/31/22 04:21 Potassium 2.8 mmol/L (3.5-5.1) L* 07/31/22 04:21 Chloride 99 mmol/L (98-107) 07/31/22 04:21 Carbon Dioxide 16 mmol/L (22-29) L 07/31/22 04:21 Anion Gap 19.8 (5-19) H 07/31/22 04:21 BUN 26 mg/dL (8-23) H 07/31/22 04:21 Creatinine 1.1 mg/dL (0.7-1.2) 07/31/22 04:21 GFR Calculation Not Reportable 07/31/22 04:21 Glucose 147 mg/dL (65-115) H 07/31/22 04:21 Calculated Osmolality 281 mOsm/kg (285-295) L 07/31/22 04:21 Lactate 5.4 mmol/L (0.5-2.2) H* 07/31/22 04:21 Calcium 9.4 mg/dL (8.5-10.5) 07/31/22 04:21 Magnesium 1.5 mg/dL (1.7-2.3) L 07/31/22 04:21 Total Bilirubin 12.6 mg/dL (0.15-1.2) H* 07/31/22 04:21 AST 105 U/L (0-40) H 07/31/22 04:21 ALT 47 U/L (0-41) H 07/31/22 04:21 Alkaline Phosphatase 245 U/L (40-130) H 07/31/22 04:21 Total Protein 5.2 g/dL (6.6-8.7) L 07/31/22 04:21 Albumin 2.3 g/dL (3.5-5.2) L 07/31/22 04:21 Globulin 2.9 g/dL (1.3-4.6) 07/31/22 04:21 Lipase 21 U/L (13-60) 07/31/22 04:21 Urine Color Other (Yellow) 07/31/22 04:44 Urine Appearance Clear (CLEAR) 07/31/22 04:44 Urine pH 5 (5-7) 07/31/22 04:44 Ur Specific [place] 1.020 (1.005-1.030) 07/31/22 04:44 Urine Protein 1+ (Negative) H 07/31/22 04:44 Urine Glucose (UA) Norm (Normal) 07/31/22 04:44 Urine Ketones Not tested (Negative) H 07/31/22 04:44 Urine Blood Not tested (Negative) A 07/31/22 04:44 Urine Nitrate Not tested (Negative) A 07/31/22 04:44 Urine Bilirubin 3+ (Negative) H 07/31/22 04:44 Urine Urobilinogen Not tested mg/dL (Negative) A 07/31/22 04:44 Ur Leukocyte Esterase Not tested (Negative) A 07/31/22 04:44 Urine RBC 0-4 /hpf (0-2) H 07/31/22 04:44 Urine WBC 0-4 /hpf (0-5) H 07/31/22 04:44 Ur Squamous Epith Cells 0-4 /hpf (0-5) H 07/31/22 04:44 Ur Renal Epithelial Cell 0-5 /hpf 07/31/22 04:44 Amorphous Sediment 1+ /hpf 07/31/22 04:44 Urine Bacteria 1+ /hpf (NONE) H 07/31/22 04:44 Hyaline Casts 0-4 /lpf H 07/31/22 04:44 Fine Granular Casts 0-4 /lpf H 07/31/22 04:44 Coarse Granular Casts 5-10 /lpf H 07/31/22 04:44 Other Casts 2-5 /lpf 07/31/22 04:44 Coronavirus 229E (PCR) Not detected (NOT DETECT) 07/31/22 07:55 SARS-CoV-2 (PCR) Not detected (NOT DETECT) 07/31/22 07:55 Discharge Plan Discharge Patient Disposition: Transfer to ED Clinical Impression: Ascending cholangitis, Status post laparoscopic cholecystectomy, Cirrhosis, Pancreatic cancer metastasized to liver Condition: Stable Prescriptions: No Action magnesium hydroxide [Milk of Magnesia] 400 mg/5 mL suspension 30 ml PO BID PRN (Reason: constipation) Qty: 240 0RF nifedipine 90 mg tablet extended release 90 mg PO BEDTIME sotalol 80 mg tablet 120 mg PO QAM Referrals: Dianna Michael PA [Primary Care Provider] - Sign Out Sign Out Data: Patient Sign Out occurred on 07/31/22 at 06:14. Patient's care was discussed, and care was transferred from to Srinivasan Griffin DO. Coding Level of Care Code ED Extruding Machine Operator for Chg Fwd Documented by User: Srinivasan Griffin DO 07/31/22 10:43 HPI - Weakness General: Chief complaint: Weakness Stated complaint: WEAKNESS Time Seen by Provider: 07/31/22 03:56 PFSH ED PFSH: Medical History Abnormal glucose Atrial fibrillation Cirrhosis History of nonmelanoma skin cancer HTN (hypertension) Prostate cancer Surgical History H/O knee surgery History of appendectomy History of colonoscopy 5 yrs ago History of hernia repair Status post laparoscopic cholecystectomy (09/30/21) Family History Other Cancer Diabetes Social History Smoking and tobacco status: never smoked Alcohol intake: current Alcohol intake frequency: holidays/special occasions only Alcohol type: beer Course Vital Signs: Vital signs: Vital Signs Temperature 97.4 F L 07/31/22 04:03 Pulse Rate 94 07/31/22 07:37 Respiratory Rate 16 07/31/22 06:31 Blood Pressure 102/53 07/31/22 07:37 Pulse Oximetry 100 07/31/22 07:37 Oxygen Delivery Me thod 07/31/22 07:37 Oxygen Flow Rate 2 07/31/22 07:37 MDM - Weakness Medical Decision Making Patient care handoff received from Dr. Gregg continuation of ED evaluation. I personally saw and evaluated patient and reperformed hadley portions of E/M. Reviewed chart and labs and examined the patient discussed with family. Patient appears to have acute ascending cholangitis probably has a biliary obstruction from his pancreatic mass as well discussed with Dr. Sylvia Bhardwaj at [facility]. Cultures been done and patient started on antibiotics for ascending cholangitis. Medical Records I reviewed the patient's medical records. Lab Data I reviewed the patient's lab results. 07/31/22 04:21 07/31/22 04:21 Radiology Impressions Chest X-Ray 07/31/22 04:03 IMPRESSION: No acute findings. Abdomen/Pelvis CT 07/31/22 04:32 IMPRESSION: 1. Findings of stage IV cancer with pancreatic mass and adjacent lymphadenopathy, liver metastases, and likely other sites of metastatic disease. 2. Hepatosplenomegaly with numerous varices. 3. Moderate right-sided colitis. 4. Diffuse 3rd spacing of fluid. Mild ascites. 5. Fecal filled colon. 6. Numerous chronic findings above. Concerning findings overall. Advise appropriate follow-up as indicated. COMMENTS: Consistent with the [place]'s Incidental Findings Committee white paper (J Am Jessica Radiol 2018): Any incidental renal lesion less than 1 cm or classified as too small to characterize, or any incidental cystic renal lesion characterized as simple-appearing, is likely benign. No follow-up imaging is recommended for these lesions per consensus recommendations based on imaging criteria. Laboratory Results WBC 12.9 10^3/uL (4.0-10.0) H 07/31/22 04:21 RBC 4.40 10^6/uL (4.1-5.3) 07/31/22 04:21 Hgb 12.0 g/dL (11.7-16.6) 07/31/22 04:21 Hct 36.8 % (42.0-52.0) L 07/31/22 04:21 MCV 83.6 fl (80-94) 07/31/22 04:21 MCH 27.3 pg (28.0-34.0) L 07/31/22 04:21 MCHC 32.6 g/dL (30.0-36.0) 07/31/22 04:21 RDW 20.9 % (12.1-15.1) H 07/31/22 04:21 Plt Count 173 10^3/cmm (130-400) 07/31/22 04:21 MPV 10.0 fL (7.4-10.4) 07/31/22 04:21 Neut % (Auto) 87.1 % 07/31/22 04:21 Lymph % (Auto) 5.4 % 07/31/22 04:21 [place] % (Auto) 6.3 % 07/31/22 04:21 Eos % (Auto) 0.0 % 07/31/22 04:21 Baso % (Auto) 0.2 % 07/31/22 04:21 Neut # (Auto) 11.24 10^3/uL (1.8-7.7) H 07/31/22 04:21 Lymph # (Auto) 0.7 10^3/uL (0.8-4.8) L 07/31/22 04:21 [place] # (Auto) 0.8 10^3/uL (0.2-0.9) 07/31/22 04:21 Eos # (Auto) 0.0 10^3/uL (0.0-0.8) 07/31/22 04:21 Baso # (Auto) 0.0 10^3/uL (0.0-0.1) 07/31/22 04:21 Nucleated RBC % (auto) 0 % 07/31/22 04:21 Nucleated RBCs # 0.0 /100WBC 07/31/22 04:21 PT 21.80 SECONDS (12.1-14.9) H 07/31/22 04:21 INR 1.83 (0.8-1.2) H 07/31/22 04:21 Specimen Type Arterial 07/31/22 05:20 Sample Site Radial, left 07/31/22 05:20 ABG pH 7.38 (7.35-7.45) 07/31/22 05:20 ABG pCO2 30.7 mmHg (35-45) L 07/31/22 05:20 ABG pO2 68.9 mmHg (80.0-100.0) L 07/31/22 05:20 ABG HCO3 18.3 mmol/L (22-26) L 07/31/22 05:20 ABG Base Excess -5.9 mmol/L (-2.0-2.0) L 07/31/22 05:20 Mariano Test Pos 07/31/22 05:20 Hematocrit 33.9 % (42-52) L 07/31/22 05:20 O2 Delivery Device None 07/31/22 05:20 FiO2 21.0 % 07/31/22 05:20 Soil Engineer ID [email or web address] 07/31/22 05:20 Sodium 132 mmol/L (136-145) L 07/31/22 04:21 Potassium 2.8 mmol/L (3.5-5.1) L* 07/31/22 04:21 Chloride 99 mmol/L (98-107) 07/31/22 04:21 Carbon Dioxide 16 mmol/L (22-29) L 07/31/22 04:21 Anion Gap 19.8 (5-19) H 07/31/22 04:21 BUN 26 mg/dL (8-23) H 07/31/22 04:21 Creatinine 1.1 mg/dL (0.7-1.2) 07/31/22 04:21 GFR Calculation Not Reportable 07/31/22 04:21 Glucose 147 mg/dL (65-115) H 07/31/22 04:21 Calculated Osmolality 281 mOsm/kg (285-295) L 07/31/22 04:21 Lactate 5.4 mmol/L (0.5-2.2) H* 07/31/22 04:21 Calcium 9.4 mg/dL (8.5-10.5) 07/31/22 04:21 Magnesium 1.5 mg/dL (1.7-2.3) L 07/31/22 04:21 Total Bilirubin 12.6 mg/dL (0.15-1.2) H* 07/31/22 04:21 AST 105 U/L (0-40) H 07/31/22 04:21 ALT 47 U/L (0-41) H 07/31/22 04:21 Alkaline Phosphatase 245 U/L (40-130) H 07/31/22 04:21 Total Protein 5.2 g/dL (6.6-8.7) L 07/31/22 04:21 Albumin 2.3 g/dL (3.5-5.2) L 07/31/22 04:21 Globulin 2.9 g/dL (1.3-4.6) 07/31/22 04:21 Lipase 21 U/L (13-60) 07/31/22 04:21 Urine Color Other (Yellow) 07/31/22 04:44 Urine Appearance Clear (CLEAR) 07/31/22 04:44 Urine pH 5 (5-7) 07/31/22 04:44 Ur Specific [place] 1.020 (1.005-1.030) 07/31/22 04:44 Urine Protein 1+ (Negative) H 07/31/22 04:44 Urine Glucose (UA) Norm (Normal) 07/31/22 04:44 Urine Ketones Not tested (Negative) H 07/31/22 04:44 Urine Blood Not tested (Negative) A 07/31/22 04:44 Urine Nitrate Not tested (Negative) A 07/31/22 04:44 Urine Bilirubin 3+ (Negative) H 07/31/22 04:44 Urine Urobilinogen Not tested mg/dL (Negative) A 07/31/22 04:44 Ur Leukocyte Esterase Not tested (Negative) A 07/31/22 04:44 Urine RBC 0-4 /hpf (0-2) H 07/31/22 04:44 Urine WBC 0-4 /hpf (0-5) H 07/31/22 04:44 Ur Squamous Epith Cells 0-4 /hpf (0-5) H 07/31/22 04:44 Ur Renal Epithelial Cell 0-5 /hpf 07/31/22 04:44 Amorphous Sediment 1+ /hpf 07/31/22 04:44 Urine Bacteria 1+ /hpf (NONE) H 07/31/22 04:44 Hyaline Casts 0-4 /lpf H 07/31/22 04:44 Fine Granular Casts 0-4 /lpf H 07/31/22 04:44 Coarse Granular Casts 5-10 /lpf H 07/31/22 04:44 Other Casts 2-5 /lpf 07/31/22 04:44 Coronavirus 229E (PCR) Not detected (NOT DETECT) 07/31/22 07:55 SARS-CoV-2 (PCR) Not detected (NOT DETECT) 07/31/22 07:55 Discharge Plan Discharge Patient Disposition: Transfer to ED Clinical Impression: Ascending cholangitis, Status post laparoscopic cholecystectomy, Cirrhosis, Pancreatic cancer metastasized to liver Condition: Stable Prescriptions: No Action magnesium hydroxide [Milk of Magnesia] 400 mg/5 mL suspension 30 ml PO BID PRN (Reason: constipation) Qty: 240 0RF nifedipine 90 mg tablet extended release 90 mg PO BEDTIME sotalol 80 mg tablet 120 mg PO QAM Referrals: Dianna Michael PA [Primary Care Provider] - Sign Out Sign Out Data: Patient Sign Out occurred on 07/31/22 at 06:14. Patient's care was discussed, and care was transferred from to Srinivasan Griffin DO. Coding Level of Care Code ED Extruding Machine Operator for Danny Schumacher
[2022-07-31 04:29] LABS: Basophils % 0.2 %; Hematocrit 36.8 % (42.0-52.0); Lymphocytes # 0.7 10^3/uL (0.8-4.8); Lymphocytes % 5.4 %; Mean Corpuscular HGB Conc 32.6 g/dL (30.0-36.0); Mean Corpuscular Hemoglobin 27.3 pg (28.0-34.0); Mean Corpuscular Volume 83.6 fl (80-94); Monocytes # 0.8 10^3/uL (0.2-0.9); Monocytes % 6.3 %; Neutrophils # 11.24 10^3/uL (1.8-7.7); Neutrophils % 87.1 %; Nucleated Red Blood Cells % 0 %; Platelet Count 173 10^3/cmm (130-400); Red Cell Distribution Width 20.9 % (12.1-15.1); White Blood Count 12.9 10^3/uL (4.0-10.0)
--- NOTE | 2022-07-31 04:32 | CTR_ITS ---
PROCEDURE INFORMATION: Exam: CT Abdomen And Pelvis With Contrast Exam date and time: 07/31/2022 4:55 AM Age: 72 years old Clinical indication: Other: General weakness/jaundice/hypotension; Prior surgery; Surgery type: Gb. Appy. Hernia; Patient HX: General weakness with hypotension on monitor. Recently diagnosed with hepatic cancer at outside facility. RT peritoneal drain pulled yesterday. Visibly jaundiced. History of prostate cancer. ; Additional info: Abd pain TECHNIQUE: Imaging protocol: Computed tomography of the abdomen and pelvis with contrast. Radiation optimization: All CT scans at this facility use at least one of these dose optimization techniques: automated exposure control; mA and/or kV adjustment per patient size (includes targeted exams where dose is matched to clinical indication); or iterative reconstruction. Contrast material: OMNI 350; Contrast volume: 100 ml; Contrast route: INTRAVENOUS (IV); Other protocol: This patient has received 0 known CTs and 0 known cardiac nuclear medicine studies in the 12 months prior to the current study. COMPARISON: CT abdomen w con* [id number] 05/07/2021 10:47 AM RADIATION DOSE METRICS: Total DLP (mGy-cm): 1067.93 FINDINGS: Lungs: Lung base atelectasis or scarring. Heart: Heart is mildly enlarged. Liver: Liver is quite large. Multiple hepatic hypodense masses are seen, and these measure up to about 4.9 cm in size. Gallbladder and bile ducts: Absent gallbladder. There is moderate intra and extrahepatic biliary dilation. Pancreas: At the pancreatic uncinate there is a small hypodense or cystic mass measuring 2.3 cm. Overall the pancreas is rather heterogenous. Spleen: Moderate splenomegaly. Adrenal glands: Normal. No mass. Kidneys and ureters: Multiple very small bilateral renal cysts. Minimal left nephrolithiasis. Stomach and bowel: Fecal filled colon. [id number] right colon wall thickening. Appendix: No evidence of appendicitis. Intraperitoneal space: Mild perihepatic fluid. Mild diffuse mesenteric edema. Mild pelvic free fluid. Vasculature: Numerous left upper quadrant varices are visualized. Advanced diffuse vascular calcification noted. Lymph nodes: There is mild periportal and peripancreatic lymphadenopathy with nodes measuring up to about 3.5 cm. Urinary bladder: Collapsed bladder, not well studied. Reproductive: The prostate is mildly enlarged. Bones/joints: Moderate spine DJD. Upper sacral sclerotic lesion, nonspecific. Soft tissues: Diffuse anasarca. CT/CT abdomen pelvis w con* [id number] IMPRESSION: 1. Findings of stage IV cancer with pancreatic mass and adjacent lymphadenopathy, liver metastases, and likely other sites of metastatic disease. 2. Hepatosplenomegaly with numerous varices. 3. Moderate right-sided colitis. 4. Diffuse 3rd spacing of fluid. Mild ascites. 5. Fecal filled colon. 6. Numerous chronic findings above. Concerning findings overall. Advise appropriate follow-up as indicated. COMMENTS: Consistent with the [place] [employer]'s Incidental Findings Committee white paper (J Am Jessica Radiol 2018): Any incidental renal lesion less than 1 cm or classified as too small to characterize, or any incidental cystic renal lesion characterized as simple-appearing, is likely benign. No follow-up imaging is recommended for these lesions per consensus recommendations based on imaging criteria.
[2022-07-31 04:40] LABS: INR 1.83 (0.8-1.2)
[2022-07-31 04:45] LABS: Alanine Aminotransferase 47 U/L (0-41); Albumin Level 2.3 g/dL (3.5-5.2); Alkaline Phosphatase 245 U/L (40-130); Anion Gap 19.8 (5-19); Aspartate Amino Transferase 105 U/L (0-40); Blood Urea Nitrogen 26 mg/dL (8-23); Calcium 9.4 mg/dL (8.5-10.5); Carbon Dioxide 16 mmol/L (22-29); Chloride 99 mmol/L (98-107); Globulin 2.9 g/dL (1.3-4.6); Glucose 147 mg/dL (65-115); Osmolality Calculated 281 mOsm/kg (285-295); Sodium 132 mmol/L (136-145); Total Protein 5.2 g/dL (6.6-8.7)
[2022-07-31 04:47] VITALS: BP 84/50; PULSE 104; RESP 17; O2SAT 93
[2022-07-31] MEDS: iohexol 350 mg/mL 500 mL Btl (per mL) IV (04:58)
[2022-07-31 05:04] LABS: Lactate (Lactic Acid level) 5.4 mmol/L (0.5-2.2); Potassium 2.8 mmol/L (3.5-5.1); Total Bilirubin 12.6 mg/dL (0.15-1.2)
[2022-07-31 05:06] LABS: Lipase 21 U/L (13-60)
[2022-07-31 05:15] LABS: Glucose Urine UA Norm (Normal); Protein Urine 1+ (Negative); Urine Appearance Clear (CLEAR); Urine Color Other (Yellow); pH Urine 5 (5-7)
[2022-07-31] MEDS: piperacillin-tazobactam 3.375 GM in sodium chloride 0.9% (plus) 50 ML IV (05:15)
[2022-07-31] MEDS: potassium chloride ER 20 mEq Tablet 40 MEQ PO (05:15)
[2022-07-31 05:16] LABS: Bilirubin Urine 3+ (Negative); Blood Urine Not Tested (Negative); Ketones Urine Not Tested (Negative); Nitrate Urine Not Tested (Negative)
[2022-07-31] MEDS: vancomycin 1,000 MG in sodium chloride 0.9% 250 ML 250 MG IV (05:16)
[2022-07-31 05:17] LABS: Add Urine Microscopic? YES; Leukocyte Esterase Urine Not Tested (Negative); RBC Urine 0-4 /hpf (0-2); Urobilinogen Urine Not Tested mg/dL (Negative); WBC Urine 0-4 /hpf (0-5)
[2022-07-31 05:18] LABS: Add Urine Culture? No; Amorphous Sediment Urine 1+ /hpf; Bacteria Urine 1+ /hpf; Fine Granular Casts Urine 0-4 /lpf; Hyaline Casts Urine 0-4 /lpf; Renal Epithelial Cells Urine 0-5 /hpf; Squamous Epithelial Cell Urine 0-4 /hpf (0-5)
[2022-07-31 05:23] LABS: Magnesium 1.5 mg/dL (1.7-2.3)
[2022-07-31 05:27] LABS: ABG PCO2 30.7 mmHg (35-45); ABG PH Result 7.38 (7.35-7.45); Arterial Blood Gas Hematocrit 33.9 % (42-52); Base Excess ABG -5.9 mmol/L (-2.0-2.0); Blood Gas Allen Test Pos; Blood Gas Sample Site Radial, left; Blood Gas Sample Type Arterial; HCO3 ABG 18.3 mmol/L (22-26); PO2 ABG 68.9 mmHg (80.0-100.0)
[2022-07-31 05:31] VITALS: BP 120/74; PULSE 105; RESP 17; O2SAT 95
[2022-07-31 06:05] VITALS: BP 84/47; PULSE 87; RESP 16; O2SAT 92
--- NOTE | 2022-07-31 06:28 | PC.NURSE ---
Pt oxygen saturation consistently dropping to mid to high 80s while sleeping, placed pt on 2L NC
[2022-07-31 06:31] VITALS: BP 106/52; PULSE 95; RESP 16; O2SAT 96
[2022-07-31] MEDS: potassium chloride premix 100 ML 25 MEQ IV (06:47)
[2022-07-31] MEDS: magnesium sulfate premix 2 GM/50 ML PIGGYBACK IV (06:47)
[2022-07-31 07:37] VITALS: BP 102/53; PULSE 94; O2SAT 100
--- NOTE | 2022-07-31 07:55 | PC.PHAR ---
pt states he takes care of his own medications-pt states he had a rx for oxycodone ir 10mg filled 07/25/22 3d/s but states he no longer has any left-pt states he hasnt taken his nifedipine er 90mg hs or sotalol 80mg take 120mg qam since thursday07/28/22 states his bp has been low-pt states the medications entered are the only meds he is taking
[2022-07-31 09:45] LABS: Adenovirus Not Detected (NOT DETECT); Chlamydia Pneumoniae Not Detected (NOT DETECT); Coronavirus 229E,HKU1,NL63,OC4 Not Detected (NOT DETECT); Human Metapneumovirus Not Detected (NOT DETECT); Human Rhinovirus/Enterovirus Not Detected (NOT DETECT); Influenza A Not Detected (NOT DETECT); Influenza A H1 Not Detected (NOT DETECT); Influenza A H1-2009 Not Detected (NOT DETECT); Influenza A H3 Not Detected (NOT DETECT); Influenza B Not Detected (NOT DETECT); Mycoplasma Pneumoniae Not Detected (NOT DETECT); Parainfluenza Virus Type 1 Not Detected (NOT DETECT); Parainfluenza Virus Type 2 Not Detected (NOT DETECT); Parainfluenza Virus Type 3 Not Detected (NOT DETECT); Parainfluenza Virus Type 4 Not Detected (NOT DETECT); Respiratory Syncytial Virus A Not Detected (NOT DETECT); Respiratory Syncytial Virus B Not Detected (NOT DETECT); SARS-COV-2 Not Detected (NOT DETECT)
== END 2022-07-31 10:09 ==
PROVIDERS: Emergency Medicine; Emergency Provider Family Medicine; PCP Physician Assistant
DX: K83.09 Other cholangitis (principal); K74.60 Unspecified cirrhosis of liver; C25.9 Malignant neoplasm of pancreas, unspecified; C78.7 Secondary malignant neoplasm of liver and intrahepatic bile duct; Z90.49 Acquired absence of other specified parts of digestive tract; Z20.822 Contact with and (suspected) exposure to COVID-19; I10 Essential (primary) hypertension
CPT/HCPCS: 36600; 71045; 74177; 80053; 81001; 82803; 83605; 83690; 83735; 85025; 85610; 87040; 87077; 87150; 87186; 87205; 87635; 93005; 96361; 96365; 96367; 99285; J2543; J3370; J3475; J3480; J7030; J7050; Q9967